=== PATIENT | female | born 1960 | race Caucasian/White ===

== ENCOUNTER 2016-10-12 17:55 | Inpatient (IN) | payer BC ==
[~2016-10-12] VITALS: Ht 157.5 cm; Wt 136.6 kg
--- NOTE | ~2016-10-12 | WND ---
ADMIT: 10/12/2016 RM/LOC: 305 [facility] MR#: [id number] [address] [place], [place] [address] MICHELL SANTOS [address] [place] [address] Wound Care Clinic SEX: F AGE: 55 : 1960 DATE OF VISIT: 10/13/2016 TIME IN: 0955 hours. TIME OUT: 1015 hours. REASON FOR VISIT: Evaluation and treatment of abdominal wounds. This is a request for wound care from Dr. Luis Fry. HISTORY OF PRESENT ILLNESS: This is a 55-year-old female, who was seen by Wound Care in the summer of 2013. She had a history of multiple hernia repairs with mesh placement in 2003. In 2013, she had intermittent fevers with blisters. It was noted that she had mesh that needed to be removed from her abdomen. It would break open and heal. She is followed by Dr. Lloyd and the mesh was removed and hernia repaired at [facility] in [place]. She had wound VAC therapy to the area. Old records had indicated that one of the hernias was nearly strangulated in the [facility]. She had been following routinely with [place], and then approximately a year ago, she had additional mesh that was placed that need to be removed. In January of 2016, she also had a surgery on the distal abdomen where she had a transverse incision and she said they "removed skin." Since that surgery, she has had a healing incisional dehiscence in the lower abdomen as well as to crust in the midline incision. When she last saw her doctor in [place], she was told to keep the area cleansed well with antibacterial soap and water and cover it with gauze. She follows routinely with [place]. Most recently, she presented to the emergency room on 10/12/2016 with shortness of breath, low sats, abdominal redness. The redness came on quite suddenly. She had a history of gastric bypass with slow healing abdominal wound. In the last year, it has been in secondary intention healing. She said she started to feel worse. She had a fever up to 104.4. Her family members encouraged her to go to the emergency room where she was evaluated and admitted. In the emergency room, she was treated with sepsis criteria possibly due to pneumonia, although the chest x-ray was concerning for acute congestive heart failure and pulmonary edema. She was also hypoxic and required oxygen. She is noted to have widespread cellulitis over the non- healing hernia repairs and it was apparent that the original procedure was still open. She was admitted for further evaluation and care. PAST MEDICAL HISTORY: Hypertension. Hypercholesteremia. Morbid obesity. Status post gastric bypass. Asthma. Uterine cancer. History of diabetes, now resolved since the bypass. PAST SURGICAL HISTORY: Surgical history includes total abdominal hysterectomy. Gastric bypass. Hernia repairs x2. Tonsillectomy. ALLERGIES: None. CURRENT MEDICATIONS: Per the MAR. Please see the MAR for further details. ADMIT: 10/12/2016 RM/LOC: 305 [facility] MR#: [id number] [address] [address] MICHELL SANTOS [address] [place] [address] Wound Care Clinic SEX: F AGE: 55 : 1960 1. Amaryl. 2. Cozaar. 3. Glucophage. 4. Lasix. 5. Micro-K. 6. vitamins. 7. Synthroid. 8. Vasotec. 9. Vitamin D. 10.Dulera. 11.DuoNeb. 12.NovoLog. 13.KCl. 14.Levaquin. 15.Vancocin. 16.Zosyn. PRN medications: 1. Glutose. 2. Motrin. 3. Tylenol. 4. DuoNeb. 5. Glucagon. 6. Tylenol suppository. 7. Nitrostat. 8. D50. 9. D5NS. FAMILY HISTORY: Significant for diabetes in her father. Mother and father with heart disease. Mother and father with cancers. SOCIAL HISTORY: She is single. She lives alone. 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 Denies alcohol, tobacco, or illicit drug use. REVIEW OF SYSTEMS: She is examined in her ICU room where she is sitting in a recliner. She is awake, alert, and oriented x3. She states that she did have a fever up to 104 and she still feels warm. She had a cough, cold, and congestion about 3 weeks ago. She still is getting shortness of breath with activity. She denies any nausea or vomiting. Her appetite has been okay. She states she has no pain in her abdomen. PHYSICAL EXAMINATION: VITAL SIGNS: 98.9, 108, 32, blood pressure 150/84, O2 sats on nasal cannula is 93%. Focused exam is to her abdomen. She has a large area of warm erythema that measures approximately 29 cm x 184 cm. In the center, she has a midline incision that has 3 crusts. One measures 2.7 x 0.8 cm. Next to this is a ADMIT: 10/12/2016 RM/LOC: 305 [facility] MR#: [id number] [address] [address] MICHELL SANTOS [address] [place] [address] Wound Care Clinic SEX: F AGE: 55 : 1960 small pinpoint crust. The third is 3.5 cm x 1.2 cm with a depth of 0.3 cm. These are all dry and brown. Periwound area is scar tissue. On the lower abdomen area is a transverse incision near her pubis that is open 1.5 x 11.5 with a depth of 0.3 cm. Wound base is pink tissue. Periwound area is scar tissue. ASSESSMENT: 1. Full-thickness incisional dehiscence to lower abdomen. 2. Abdominal wall cellulitis. 3. Dry crust in midline incision. TREATMENT PLAN: The incisions were washed well with warm soapy water, rinsed, and patted dry. To the dry crust, Betadine was applied with orders to reapply it daily. To the lower abdominal transverse incision, after washing with warm soapy water, rinsing, and patting dry, Mepilex Ag was applied, covered with Medipore tape with orders to change it every 2 days. The patient follows up routinely with her doctor in [place]. She will return to the treatment plan that he requested after discharge. Thank you for this referral and Wound will continue to follow. Lin Mg APRN/ osman JOB #: [id number] CC: Luis Fry, Attending Physician Luis Fry, Family Physician
--- NOTE | ~2016-10-12 | ECH ---
Transthoracic Echocardiography Report (TTE) Demographics Patient Name MICHELL SANTOS Date of Study 10/15/2016 A Patient Number [id number] Visit Number [id number] Date of 1960 Room Number 305 Accession Number [id number] Gender Female Age 55 year(s) Referring Ang Mcintosh Tomography Technologist Laure Platt Physician [facility] Sarika Garcia MD Physician Interpreting Jennifer MCGUIRE Battery Starter Physician Leonid Supervising Ordering Physician Sarika Garcia MD, MD/P Nurse Stress [employer] Conclusions Contractility Score Summary Left Ventricle was not well visualized. Unable to comment on wall motion. Summary Very technically difficult exam with very limited visualization. Grossly the estimated left ventricular ejection fraction is 60-65%. Mild biatrial enlargement. Trivial tricuspid regurgitation by color Doppler. There is mild pulmonary hypertension. The pulmonary pressure (RVSP) is 37 mmHg. The ascending aorta appears mildly dilated. The maximum diameter measures 3.6 cm. Due to the extremely difficult visualization, the valves cannot be seen to comment on presence of vegetation. Recommendation The patient will be given the results of this study by the physician who ordered the exam. Procedure Type of Study TTE procedure:Echo Complete SF. Procedure Date Date: 10/15/2016 Start: 11:59 AM Technical Quality: Poor visualization due to body habitus. Indications:Hypertension. Additional Indications:Bacteremia Appropriate Use Criteria: 9 Height: 63 inches Weight: 300 pounds BSA: 2.3 m Rhythm: Sinus with bundle branch block HR: 98 bpm BP: 135/71 mmHg M-Mode/2D Measurements LV Diastolic Dimension: 5.26 cm LV Systolic Dimension: 4.52 cm LV Septum Diastolic: 1.12 cm LV PW Diastolic: 1.02 cm AO Root Dimension: 3.38 cm Cardiac Output: 8.4 l/min LA Dimension: 4.32 cm Cardiac Index: 3.65 l/min*m RV Diastolic Dimension: 3.92 cm LA volume index: 36 ml/m LVOT: 2.01 cm LVOT VTI: 27.03 cm LV Stroke volume: 85.73 ml LV Stroke volume index: 37.27 ml/m Doppler Measurements AV Mean Gradient: 5.29 mmHg MV Peak E-Wave: 1.17 m/s LVOT Peak Velocity: 0.96 m/s MV Peak A-Wave: 1.6 m/s AV Area (Continuity):3.42 cm MV P1/2t: 41.9 msec TR Velocity:2.92 m/s TR Gradient:34.13 mmHg MV Deceleration Time: 144.6 msec Estimated RAP:3 mmHg MV Area (PHT): 5.25 cm Estimated RVSP: 37 mmHg PV Peak Velocity: 0.92 m/s PV Peak Gradient: 3.36 mmHg Estimated PASP: 37.13 mmHg RA Area: 21.05 cm Findings Left Ventricle The left ventricle is normal in size . Mild concentric left ventricular hypertrophy. Unable to assess diastolic function. Right Ventricle Unable to visualize right ventricle to assess function. Left Atrium The left atrium is mildly dilated by LA volume index measurement. Right Atrium The right atrium is mildly dilated. Mitral Valve The mitral valve is not well imaged. Aortic Valve The aortic valve was not well imaged. Tricuspid Valve The tricuspid valve is not well visualized. Trivial tricuspid regurgitation by color Doppler. There is mild pulmonary hypertension. The pulmonary pressure (RVSP) is 37 mmHg. Pulmonic Valve The pulmonic valve is not well visualized. Pericardial Effusion No evidence of pericardial effusion. Miscellaneous The ascending aorta appears mildly dilated. The maximum diameter measures 3.6 cm. Suboptimal subcostal window to evaluate the IVC and interatrial septum. Pleural Effusion No evidence of pleural effusion. Contractility Score LV regional wall motion:(0-Non visualized 1-Normal 2-Hypokinesis 3-Akinesis 4-Dyskinesis 5-Aneurysm) Signature
--- NOTE | 2016-10-14 08:14 | CO ---
ADMIT: 10/12/2016 RM/LOC: 305 [facility] MR#: [id number] [address] [address] JOSEY SANTOS [address] [place] [address] Consultation SEX: F AGE: 55 : 1960 DATE OF CONSULTATION: 10/12/2016 ATTENDING PHYSICIAN: Luis Fry CONSULTING PHYSICIAN: Gamal Fine MD, [facility] REASON FOR REFERRAL: Pneumonia, fever, and sepsis. HISTORY OF PRESENT ILLNESS: Josey is a 55-year-old female, who has been having fever for the last couple days and cough for last two weeks, productive of some yellow-brown sputum. She denies any hemoptysis. She denies any shortness of breath. She has chronic wounds in her abdomen, which are from hernia graft at least from 2013 that she has been battling. She has a history of asthma. She is a lifetime nonsmoker. She is on Advair and Combivent. She also has obstructive sleep apnea and wears a BiPAP for this. However, she does not know what her settings are. She had decreased appetite. She has no chest pain. No hemoptysis. She has no other cardiopulmonary complaints at the current time. She had a nuclear cardiac study in 2014 that is in her records which showed ejection fraction of 60%. She has no history of coronary artery disease. The room air sats were 82% in the ER. She was started on vanco and Zosyn in the emergency room. PAST MEDICAL HISTORY: Remarkable for gastric bypass surgery, abdominal wound infections, hypertension, hypercholesteremia, asthma, status post KAE by herniography, diabetes, and hypothyroidism. She denies any new animal exposures. She has a cat and a dog. ALLERGIES: NONE. MEDICATIONS ON ADMISSION: 1. Levothyroxine. 2. Amaryl. 3. Lasix. 4. Metformin. 5. Enalapril. 6. Cozaar. 7. Advair. 8. Vitamin D. FAMILY AND SOCIAL HISTORY: No inheritable lung diseases in the family. REVIEW OF SYSTEMS: GENERAL: No fevers as mentioned above. HEENT: No visual problems. No hearing problems. No problems with sinus congestion. Cardiac and pulmonary other than mentioned above is negative. GI: No nausea, vomiting, diarrhea, constipation, or abdominal wound, which she states is about the same as it always is. : No dysuria. MUSCULOSKELETAL: No arthralgias or arthritis. SKIN: No rashes. ADMIT: 10/12/2016 RM/LOC: 305 [facility] MR#: [id number] [address] [address] JESSICAJOSEY MILLER [address] [place] [address] Consultation SEX: F AGE: 55 : 1960 PHYSICAL EXAMINATION: VITAL SIGNS: Temperature in the emergency room was 104.4, heart rate 130, blood pressure 160/70, and respirations are 36. GENERAL: She is awake, oriented, slightly dyspneic in appearance, but able to speak in full sentences. She is on 4 L nasal cannula. HEENT: Sclerae nonicteric. Pupils are equal and reactive. NECK: Supple. Trachea is midline. LUNGS: Decreased, but clear. CV: Regular rate without murmurs, rubs, or gallops. ABDOMEN: She has erythema lower 1/3 of her abdomen, which she states is about the same as it normally is. She has wounds that are dressed. EXTREMITIES: No cyanosis, clubbing, +edema in lower extremities. SKIN: Other than her wound on her abdomen, no other acute rashes. NEURO: She is moving all extremities. Chest x-ray shows an elevated right hemidiaphragm and bibasilar infiltrates, which is chronic for her. LABORATORY DATA: Sodium 144, white count 23.8, hemoglobin 13.1, and platelets are 230. She has 16% bands. IMPRESSION: 1. Pneumonia. 2. Obstructive sleep apnea. 3. Obesity. 4. Chronic wound infections. RECOMMENDATIONS AND DISCUSSION: She was started on Vanco and Zosyn. We will add Levaquin. We will get a urine Legionella antigen. Most likely, this is pneumonia. We will place her on BiPAP to see if this improves her respiratory status. Await cultures. She has received 4 L of fluid. We will monitor blood pressure and urine output and laboratories. Thank you for the consultation. Gamal Fine MD, FCCP/ modl JOB #: [id number] CC: Luis Fry, Attending Physician Luis Fry, Family Physician
--- NOTE | 2016-10-15 10:36 | CO ---
ADMIT: 10/12/2016 RM/LOC: 305 [facility] MR#: [id number] [address] [place], [place] [address] MICHELL SANTOS [address] [place] [address] Consultation SEX: F AGE: 55 : 1960 DATE OF CONSULTATION: 10/13/2016 ATTENDING PHYSICIAN: Luis Fry CONSULTING PHYSICIAN: Xiomy Baum MD REASON FOR CONSULTATION: Possible heart failure. HISTORY OF PRESENT ILLNESS: I was asked to consult on Ms. Santos at the request of Dr. Luis Fry for the problem of questionable heart failure. This is a 55-year-old, white female, admitted for increasing shortness of breath, fevers, and chills along with cough over the past few days. She has had a history of infected abdominal mesh from previous surgery. She has been having some symptoms of infection, but nothing to suggest new orthopnea. No PND. No lower extremity edema. She denies any chest pressure or tightness. She is actually lying flat in the bed right now for a PICC line without any complications or complaints. PAST MEDICAL HISTORY: Includes: 1. Endometrial carcinoma. 2. Hypothyroidism. 3. Sleep apnea. 4. Asthma. 5. COPD. 6. history of a hernia repair. 7. History of gastric bypass in 2003. 8. Total abdominal hysterectomy. 9. Bilateral salpingo-oophorectomy in 2001. 10.Cholecystectomy. CURRENT MEDICATIONS: Include: 1. DuoNebs. 2. Levaquin. 3. Saline. 4. Vancomycin. 5. Zosyn. ALLERGIES: NONE KNOWN. FAMILY HISTORY: Mother with coronary disease. She states there is hypertension and diabetes in the family. SOCIAL HISTORY: She is a nonsmoker, nondrinker, who is single without any children. REVIEW OF SYSTEMS: A full 12-point review of systems was obtained and deemed to be negative except the pertinently dictated positives in the HPI. PHYSICAL EXAMINATION: VITAL SIGNS: Blood pressure 124/60, with a heart rate ADMIT: 10/12/2016 RM/LOC: 305 [facility] MR#: [id number] [address] [address] MICHELL SANTOS [address] [place] [address] Consultation SEX: F AGE: 55 : 1960 in the 110s, temp is 98.9. Her weight is 299 pounds. GENERAL: She is an obese white female, in no acute distress. Alert and oriented x3. NECK: Shows brisk carotid upstrokes. No JVD or bruit. CHEST: Clear. HEART: Regular. ABDOMEN: Soft. EXTREMITIES: No cyanosis, clubbing, edema. MUSCULOSKELETAL: Normal. NEUROLOGIC: Normal. SKIN: Appears pink, warm, and dry. LABORATORY AND ANCILLARY DATA: Blood cultures came back positive for gram- positive cocci. Her pH is 7.36, pCO2 of 47, PO2 of 83, sodium is 144, potassium 2.6, BUN 12, creatinine 0.6. CK-MB and troponin are normal. ProBNP of 2072. White blood cell count is 19.1, with hemoglobin 11.3, and a platelet count of 230,000. Chest x-ray is poor quality. ASSESSMENT AND PLAN: 1. Community-acquired pneumonia. 2. Sepsis. 3. Gram-positive bacteremia. 4. Obesity. 5. Diabetes. 6. Sinus tachycardia. I suspect clinical symptoms are secondary to pneumonia bacteremia and sepsis. She is positive 4 L and symptoms have improved. We will check an echo once heart rate is stable below 100. Continue supportive care. I suspect her elevated BNP is due to her pulmonary process currently. Xiomy Baum MD/ osman JOB #: [id number] CC: Luis Fry, Attending Physician Luis Fry, Family Physician
--- NOTE | 2016-10-17 07:21 | ER ---
ADMIT: 10/12/2016 RM/LOC: 305 [facility] MR#: [id number] [id number] [facility] [address] [place], [place] [address] MICHELL SANTOS [address] [place] [address] Emergency Room Report SEX: F AGE: 55 : 1960 DATE: 10/12/2016 TIME: 7:55. Please refer to my T-sheet for complete H and P. HISTORY OF PRESENT ILLNESS: Briefly, the patient is a 55-year-old that comes in with shortness of breath, low sats, abdominal wall redness that started last night. She has a known history of a gastric bypass with a slow healing abdominal wound that has been over a year in the secondary intention healing. She has just been getting worse. Her family member checked on her and said they made her to come. PHYSICAL EXAMINATION: VITAL SIGNS: Blood pressure 163/74, pulse 115, respirations 30, temp 104.4, saturating 82% on room air, and 91 on 2 L. GENERAL: She is in mild distress. HEENT: Dry mucous membranes. LUNGS: Coarse with expiratory wheezes. HEART: Tachycardic. ABDOMEN: Soft, but she has a diffuse erythematous, warm rash consistent with a cellulitis. She has a transverse abdominal lower abdominal incision that is healing by secondary intention with some drainage. EXTREMITIES: She has 2+ pitting edema. NEUROLOGIC: She is alert, oriented, nonfocal. EMERGENCY DEPARTMENT COURSE: We did the whole sepsis protocol. We ordered the sepsis fluids after the liter of saline was in. She will get the 30 per kg. Blood cultures x2 were sent. EKG was sinus tach, nonspecific changes, rate 129. Labs are still pending as she was hard to get blood from, but after talking to Dr. Shea, she will be in to the hospital to see in the ER and will admit to the hospital. The patient has improved after a neb, 1 g of Tylenol, and first liter of fluid. ASSESSMENT: 1. Acute sepsis. 2. Abdominal wall cellulitis. 3. Pneumonia clinically, still waiting on the x-ray. 4. Critical care time is 60 minutes until Shabbir arrived in the ER. PLAN: Admit to the hospital. Adam Grove MD/ osman JOB #: [id number] CC: Luis Fry MD, Attending Physician ADMIT: 10/12/2016 RM/LOC: 305 [facility] MR#: [id number] [address] [address] MICHELL SANTOS [address] [place] [address] Emergency Room Report SEX: F AGE: 55 : 1960 Luis Fry MD, Family Physician
--- NOTE | 2016-10-19 08:16 | HP ---
ADMIT: 10/12/2016 RM/LOC: 305 [facility] MR#: [id number] [address] [address] MICHELL SANTOS [address] [place] [address] History and Physical SEX: F AGE: 55 : 1960 DATE OF SERVICE: CHIEF COMPLAINT: Shortness of breath, hypoxia, fever. HISTORY OF PRESENT ILLNESS: The patient started having a cough, fever, and chills on 10/10/2016. Over the next day and a half, her symptoms progressively got worse. She became more fatigued, weak. This morning, she could barely get out of bed. She then tried to go to work, but she just had no energy, so she decided to stay home. She became very short of breath and much more lethargic. Sister brought her into the ER where she was found to be hypoxic in the 80s requiring supplemental oxygen. The patient was meeting sepsis criteria possibly due to a pneumonia, although chest x-ray is also somewhat concerning for acute congestive heart failure and pulmonary edema. The patient also was noted to have widespread cellulitis across her abdomen and on her flanks. The patient has an open wound from previous nonhealing hernia repairs and bypass repairs. It has apparently improved since the original procedures but still has open, and now cellulitis is fairly widespread. She states she is very short of breath, but she is alert and oriented. She is able to answer my questions appropriately. PAST MEDICAL HISTORY: Significant for hypertension, high cholesterol, morbid obesity, status post gastric bypass, asthma. She has a history of uterine cancer. She has a history of diabetes and has now resolved since the bypass. SURGICAL HISTORY: Total abdominal hysterectomy, gastric bypass, hernia repair x2, tonsils. ALLERGIES: NONE. MEDICATIONS: See list. SOCIAL HISTORY: She does not smoke. Does not use drugs or drink alcohol. FAMILY HISTORY: Noncontributory to this current admission other than family has a long history of heart, diabetic complications. LABORATORY AND X-RAY DATA: Workup in the ER, procalcitonin was 13.79, lactic acid 3.5, white blood cell count was 23.8, hemoglobin 13.1, and platelets were 301. Cardiac enzymes were normal. Electrolytes were normal except for elevated glucose at 2.7, magnesium low at 1.2. Alkaline phosphatase, AST and ALT were also normal. Chest x-ray, her final Radiology read states findings suggestive of a degree of acute cardiac decompensation, CHF with cardiomegaly along with suspected mild bilateral pulmonary edema underlying and/or intermittent infectious and inflammatory processes are not able to be excluded at this time. Influenza A and B were negative. Blood cultures were drawn and are pending. PHYSICAL EXAMINATION: VITAL SIGNS: Most recent vital signs, blood pressure is 140/70, heart rate in the one teens, SpO2 of 95% on 4 L of oxygen, ADMIT: 10/12/2016 RM/LOC: 305 [facility] MR#: [id number] [address] [address] MICHELL SANTOS Behzad [address] [place] [address] History and Physical SEX: F AGE: 55 : 1960 temperature is 102.7. GENERAL: She is in increased distress primarily due to increased work of breathing. She is alert and oriented x3 and answers questions appropriately. She is very pleasant. Morbid obesity. HEENT: Normocephalic and atraumatic. Moist mucous membranes. Extraocular muscles are intact. HEART: Tachycardia. No murmurs appreciated at this time. LUNGS: Coarse breath sounds bilaterally. No wheezing. She does have an increased work of breathing. ABDOMEN: Morbid obesity, erythema over the abdominal sides, and abdomen also wound open wound is noted. EXTREMITIES: Increased edema bilaterally. No erythema in the lower extremities. NEURO: Cranial nerves II through XII are grossly intact. ASSESSMENT: This is a 55-year-old female, who presented to the ER for increased shortness of breath and hypoxia. 1. Sepsis secondary to pneumonia. 2. Acute respiratory failure with hypoxia. 3. Community-acquired pneumonia. 4. Hypomagnesemia. 5. Hypertension. 6. Hypercholesterolemia. PLAN: We will admit this patient to ICU status. We will continue the sepsis protocol. We will trend lactic acid. We will repeat a CBC, BMP in the morning, as well as a repeat chest x-ray. Continue the patient on the vancomycin and Zosyn started down in the ER with pharmacy to dose. We will continue IV fluids for maintenance. We will replace magnesium with 1 g of magnesium sulfate x1. We will continue DuoNebs as needed for breathing. At this point in time, we will keep the patient n.p.o. due to her acute situation. Margarita Shea MD Resident / Luis Fry MD / modl JOB #: [id number] CC: Luis Fry, Attending Physician Luis Fry, Family Physician
[2016-10-19] MEDS ORDERED: VITAMIN D250000 UNIT PO (16:04)
[2016-10-19] MEDS ORDERED: COZAAR DPS25 MG PO (16:05)
[2016-10-19] MEDS ORDERED: VASOTEC DPS2.5 MG PO (16:05)
[2016-10-19] MEDS ORDERED: GLUCOPHAGE-DPS500 MG PO (16:05)
[2016-10-19] MEDS ORDERED: LEVOTHYROXINE150 MCG PO (16:05)
[2016-10-19] MEDS ORDERED: LASIX DPS40 MG PO (16:05)
[2016-10-19] MEDS ORDERED: ADVAIR DIS1 PUFF/DO1 IH (16:06)
[2016-10-19] MEDS ORDERED: PRENATAL VIT1 TAB PO (16:06)
[2016-10-19] MEDS ORDERED: GLIMEPIRIDE2 MG PO (16:06)
[2016-10-19] MEDS ORDERED: MYCELEX TROCHE10 MG PO (16:07)
[2016-10-19] MEDS ORDERED: MICRO-K DPS10 MEQ PO (16:07)
[2016-10-19] MEDS ORDERED: ROCEPHIN DPS2 GM IV (16:08)
[2016-10-19] MEDS ORDERED: MAALOX DPS30 ML PO (16:08)
[2016-10-19] MEDS ORDERED: MOI-STIR120 ML PO (16:09)
[2016-10-19] MEDS ORDERED: SURFAK DPS240 MG PO (16:09)
[2016-10-19] MEDS ORDERED: MOTRIN-DPS400 MG PO (16:09)
[2016-10-19] MEDS ORDERED: NITROSTAT0.4 MG SL (16:10)
[2016-10-19] MEDS ORDERED: DUONEB DPS3 ML IH (16:10)
[2016-10-19] MEDS ORDERED: TYLENOL DPS325 MG PO (16:10)
--- NOTE | 2016-10-22 11:32 | CO ---
ADMIT: 10/12/2016 RM/LOC: 305 [facility] MR#: [id number] [facility] [address] [place] [id number] MICHELL SANTOS [address] [place] [address] Consultation SEX: F AGE: 55 : 1960 DATE OF CONSULTATION: 10/15/2016 ATTENDING PHYSICIAN: Luis Fry CONSULTING PHYSICIAN: Marilynn Berrios MD REASON FOR CONSULT: Group A Streptococcus pyogenes bacteremia. Thank you, Dr. Flaherty, for the consult and involving me in this patient's care. HISTORY OF PRESENT ILLNESS: Ms. Santos is a 55-year-old, obese woman, who presented to the hospital 4 days back with complaining of increased fatigue, fever, and not feeling well. Per the notes, she was also very lethargic and short of breath. In the ER, she was noted to be hypoxic with O2 sats in the 80s and required supplemental oxygen. She was admitted for sepsis and congestive heart failure, and started on vancomycin and Zosyn. She was also noted to have widespread cellulitis across her right medial thigh, lower abdomen, and her back. She has history of multiple hernia repairs in the past and infected mesh. Her last surgery was in January and per the patient, a new mesh was put in. At present, she complains of loose watery diarrhea, 4-5 times a day since being on antibiotics. PAST MEDICAL HISTORY: Hypertension, hyperlipidemia, status post gastric bypass, asthma, morbid obesity, history of uterine cancer, diabetes mellitus. PAST SURGICAL HISTORY: Total abdominal hysterectomy, gastric bypass, hernia repair x2, tonsillectomy. ALLERGIES: NO KNOWN DRUG ALLERGIES. CURRENT MEDICATIONS: Include: 1. Amaryl. 2. Cozaar. 3. Lasix. 4. . 5. Synthroid. 6. Vasotec. 7. Vitamin D. 8. Dulera. 9. Insulin sliding scale. 10.Clindamycin 900 mg every 8 hours. 11.Zosyn 3.375 g every 8 hours. SOCIAL HISTORY: She lives at home with her sister. Denies any smoking, alcohol, or recreational drug use. FAMILY HISTORY: Significant for diabetes mellitus in her father and heart disease in both her parents. ADMIT: 10/12/2016 RM/LOC: 305 [facility] MR#: [id number] [address] MICHELL SANTOS Behzad [address] [place] [address] Consultation SEX: F AGE: 55 : 1960 REVIEW OF SYSTEMS: Ten-point review of systems negative except as mentioned in the HPI. PHYSICAL EXAMINATION: VITAL SIGNS: Current temperature is 99.7, T-max 104.1, heart rate 106, respirations 17, blood pressure 124/64, 96% on 2 L. GENERAL: No acute distress. HEENT. Head normocephalic and atraumatic. Extraocular movements intact. LYMPH: No palpable anterior/posterior cervical or supraclavicular lymphadenopathy. CHEST: Decreased breath sounds bilaterally. CARDIOVASCULAR: S1, S2 heard. Tachycardia. ABDOMEN: Soft, obese, nontender. Active bowel sounds. SKIN: She has increased erythema over her pannus in the inferior portion. At the lower abdomen, there is a transverse incision, that is mildly open and has increased erythema and mild serosanguineous drainage. MUSCULOSKELETAL: There is increased erythema and induration on her right medial thigh and she also has erythema and increased warmth over her back. DATA REVIEW: Her BMP today shows creatinine of 0.7. CBC yesterday showed white count of 13.1, platelets 251, hemoglobin 7.9. Blood cultures on admission grew group A Streptococcus. Repeat blood cultures today are no growth to-date. CT scan of chest and abdomen and pelvis showed no pneumonia. There is periaortic adenopathy. There is a large pannus with herniated bowel in the pannus. On the right side of the pannus, there is 6 x 4 cm fluid collection. There is 2.4 x 12 mm calcification within the left renal pelvis with no obstructive changes. ASSESSMENT AND PLAN: 1. Group A Streptococcus bacteremia, likely secondary to soft tissue infection. I will discontinue clindamycin and Zosyn and narrow ADMIT: 10/12/2016 RM/LOC: 305 [facility] MR#: [id number] [address] MICHELL SANTOS [address] [place] [address] Consultation SEX: F AGE: 55 : 1960 antibiotics down to ceftriaxone IV 2 g once daily. I will stop the clindamycin after today's dose as she has received it for 3 days. Repeat blood cultures are pending. An echocardiogram was ordered, which is also pending. 2. Right thigh and back cellulitis. Continue ceftriaxone. 3. Pancolitis. 4. Abdominal fluid. There is no rim enhancement. We will try IR-guided abdominal fluid aspiration if possible and send fluid for culture. 5. Congestive heart failure. 6. Obesity. 7. Diarrhea. We will check Clostridium difficile PCR. Thank you for the consult and I will continue to follow the patient. Marilynn Berrios MD/ osman JOB #: [id number] CC: Luis Fry, Attending Physician Luis Fry, Family Physician
--- NOTE | 2016-10-30 08:51 | DS ---
ADMIT: 10/12/2016 RM/LOC: 423 [facility] MR#: [id number] [id number] [address] MICHELL SANTOS [address] [place] [address] General Discharge Summary SEX: F AGE: 55 : 1960 ADMISSION DATE: 10/12/2016 DISCHARGE DATE: 10/18/2016 DISPOSITION: Improved, stable. CONSULTS: Include Pulmonology, Cardiology, Infectious Disease, and also Wound consult. PROCEDURES: The patient did undergo central line placement for antibiotic treatment. DIAGNOSES: 1. Group A Strep pyogenes bacteremia. 2. Acute respiratory failure with hypoxia suspected to be secondary to community-acquired pneumonia. 3. Widespread cellulitis on abdomen and thigh. 4. Sepsis. 5. Hypomagnesemia. 6. Hypercholesterolemia. 7. Hypertension. HISTORY OF PRESENT ILLNESS: The patient presented to the ER for a little over 24 hours of increased shortness of breath, lethargy, increasing cough and sputum production. The patient was found to be hypoxic in the ER. Moreover, chest x-ray showed some areas of possible consolidation. The patient was also noted to have widespread cellulitis on the patient's abdomen and thigh. This is likely coinciding to the open wound on patient's abdomen. The patient has a long-standing history of poor wound healing after multiple hernia repairs with mesh replacements. Due to this, the patient was started on IV antibiotics of vancomycin and Zosyn. Also, due to patient's respiratory status, the patient was admitted to the ICU. HOSPITAL COURSE: 1. Cellulitis. Again, the patient had widespread cellulitis on patient's abdomen and thigh likely corresponding to the mildly open transverse incisions on the abdomen. The patient states these have been there for multiple years since her hernia repair. The patient was meeting sepsis criteria, so blood cultures were drawn and actually grew group A Strep pyogenes. Infectious Disease was consulted and they helped manage the patient's IV antibiotics. The patient had also been placed on clindamycin. Infectious Disease narrowed the antibiotics to ceftriaxone. Initially, there was some concern for abscess on initial imaging in the abdomen and the pannus area. However, with further imaging, it was decided that there was no abscess at this time, so no drainage was done. The patient's vital signs and lab work did continue to improve throughout the hospital stay. As far as cellulitis, the patient was discharged out on outpatient IV antibiotics of ceftriaxone. 2. Community-acquired pneumonia. Initially, the patient's imaging showed possible pneumonia also coinciding with the patient's shortness of ADMIT: 10/12/2016 RM/LOC: 423 [facility] MR#: [id number] [address] [address] DANIELLE MICHELL A [address] [place] [address] General Discharge Summary SEX: F AGE: 55 : 1960 breath, hypoxia, recurrent cough. The patient was started on vancomycin and Zosyn. Dr. Fine with Pulmonology was consulted and he added IV Levaquin. Legionella antigen was negative. The patient did require home BiPAP settings throughout the hospital stay. However, the patient did not need to be intubated or have mechanical ventilation. The patient's O2 sats did continue to improve throughout the stay. 3. The patient did have an elevated BNP, and also with the patient's shortness of breath and some possible signs of heart failure on subsequent imaging throughout stay, Cardiology was consulted. The patient was not having any edema or orthopnea. It was determined that the patient's symptoms are most likely due to patient's underlying infection of pneumonia and possibly due to her cellulitis. The patient was given some Lasix to see if that helps with improving O2 status. Echo showed an LVEF of 60-65%, some mild biatrial enlargement, trivial tricuspid regurgitation, and some mild pulmonary hypertension. Due to the group A strep bacteremia, it was also hoped to visualize the valves which were not able to be done due to this echo, due to patient's body habitus and difficulty of exam. The patient continued to improve. The patient's hypertension, hypercholesterolemia were managed appropriately. Moreover, the patient's magnesium was replaced. DISCHARGE MEDICATIONS: Medications at the time of discharge include: 1. Amaryl 2 mg daily. 2. Cozaar 25 mg daily. 3. Micro-K 10 mEq b.i.d. 4. Mycelex 10 mg q.i.d. 5. vitamin. 6. Synthroid 0.15 mg daily. 7. Vasotec 2.5 mg at bedtime. 8. Vitamin D 50,000 units daily. 9. Dulera 2 puffs b.i.d. 10.Rocephin 2 g daily IV until the October,. 11.Glutose. 12.Maalox. ADMIT: 10/12/2016 RM/LOC: 423 [facility] MR#: [id number] [id number] [address] MICHELL SANTOS [address] [place] [address] General Discharge Summary SEX: F AGE: 55 : 1960 13.Biotene. 14.Motrin. 15.Nitrostat and Tylenol were also discharge medications. DISCHARGE ORDERS: Again, outpatient ceftriaxone daily until 10/27/2016. FOLLOWUP: ID follow up in 1 week with a CBC and CMP done on 10/22/2016 prior to that visit. DISPOSITION: Stable and home. CODE STATUS: Full. Margarita Shea MD Resident / Luis Fry MD / modl JOB #: [id number] CC: Luis Fry MD, Attending Physician Luis Fry MD, Family Physician
== END 2016-10-18 17:41 | disposition home or self-care (01) | DRG 871 ==
LOC: ER 17:55 → 3ICU 19:20 → 4PCU 10-16 20:37
PROVIDERS: ADMIT Family Medicine
PROC: 02HV33Z Insertion of Infusion Device into Superior Vena Cava, Percutaneous Approach (ICD-10-PCS; principal; 2016-10-13)
DX: A40.0 Sepsis due to streptococcus, group A (principal); J18.9 Pneumonia, unspecified organism; J96.01 Acute respiratory failure with hypoxia; R65.20 Severe sepsis without septic shock; L03.312 Cellulitis of back [any part except buttock and flank]; L03.115 Cellulitis of right lower limb; L03.311 Cellulitis of abdominal wall; Z68.43 Body mass index [BMI] 50.0-59.9, adult; T81.4XXD Infection following a procedure, subsequent encounter; E66.01 Morbid (severe) obesity due to excess calories; E83.42 Hypomagnesemia; G47.33 Obstructive sleep apnea (adult) (pediatric); E78.00 Pure hypercholesterolemia, unspecified; E87.70 Fluid overload, unspecified; E11.9 Type 2 diabetes mellitus without complications; E03.9 Hypothyroidism, unspecified; I10 Essential (primary) hypertension; J45.909 Unspecified asthma, uncomplicated; Z85.42 Personal history of malignant neoplasm of other parts of uterus; Z98.84 Bariatric surgery status; Z79.84 Long term (current) use of oral hypoglycemic drugs

== ENCOUNTER → 2017-01-07 | Outpatient (CLI) | payer BC ==
[~2017-01-07] MED LIST: ADVAIR DIS1 PUFF/DO1 IH; COZAAR DPS25 MG PO; DUONEB DPS3 ML IH; GLIMEPIRIDE2 MG PO; GLUCOPHAGE-DPS500 MG PO; LASIX DPS40 MG PO; LEVOTHYROXINE150 MCG PO; MAALOX DPS30 ML PO; MICRO-K DPS10 MEQ PO; MOI-STIR120 ML PO; MOTRIN-DPS400 MG PO; MYCELEX TROCHE10 MG PO; NITROSTAT0.4 MG SL; PRENATAL VIT1 TAB PO; ROCEPHIN DPS2 GM IV; SURFAK DPS240 MG PO; TYLENOL DPS325 MG PO; VASOTEC DPS2.5 MG PO; VITAMIN D250000 UNIT PO
== END | disposition home or self-care (01) ==
LOC: RAD.S 07:54
DX: Z12.31 Encounter for screening mammogram for malignant neoplasm of breast (principal)